=== PATIENT | male | born 1945 | race Caucasian/White ===

== ENCOUNTER 2016-11-10 13:49 | Inpatient (IN) | payer OTHER, SELFPAY ==
--- NOTE | ~2016-11-10 | HP ---
History And Physical [address] [place]. [address] NAME: JEAN LOPEZ : 43 STATUS : ADM IN PAT#: [id number] AGE: 70 ADM/REG DATE : 11/10/16 MR#: [id number] REPORT SERV DATE: 11/10/16 DICTATED BY: NAGA SOTELO DATE: 11/10/16 REPORT STATUS : Draft TRANSCRIBED BY: MODL DATE: 11/10/16 DATE OF ADMISSION: 11/10/2016 REASON FOR ADMISSION: Biopsy-proven pauci-immune GEN positive MPO. This is a direct admit. HISTORY OF PRESENT ILLNESS: This is a very pleasant 70-year-old male patient, who was recently evaluated by Dr. Evin Dugan in our office at the request of his primary care provider for an increased level of fatigue with known history of lupus. He was previously followed by Rheumatology in [place] and he had increasing fatigue and tiredness across of two months span. He was previously on Plaquenil and had been off the drug for about eight years. Baseline creatinine noted on 12/19/2015 to be at 1.1. The patient was subsequently evaluated on 10/28/2016 showed a creatinine at that time noted at 3.0 with a GFR of 22 mL/minute with blood and urine noted on examination of his urinalysis with +2 urinary protein and greater than 120 red blood cells per high-powered field. Subsequently, he was recommended for renal biopsy which he underwent. Renal biopsy elicited findings of pauci- immune crescentic GEN with positive MPO with most recent creatinine according to communication with his primary cementer at 4.2. Renal biopsy was on Tuesday of this week, 11/08/2016. Today at Dr. Dugan's instructions the patient is admitted via direct admission for plans for PermCath and plasma exchange for above diagnosis. He is currently sitting at bedside, awake and alert with family present in the room. Denies current chest pain. No nausea, vomiting, or diarrhea. PAST MEDICAL HISTORY: Positive for systemic lupus as above with previous trigger with Plaquenil with removal over eight years ago according to notations from our office at [facility]. History also positive for proteinuria, hematuria, acute kidney injury with creatinine noted to be on 12/19/2015 at 1.1, creatinine at 3.0 on 10/28/2016, most recent creatinine on date of biopsy on 11/08/2016 at 4.2 according to notation from [facility]. History also positive for iron deficiency anemia, hypothyroidism, and hypertension. REVIEW OF SYSTEMS: Completed. Please see HPI for pertinent details. SOCIAL HISTORY: No EtOH. No illicit drugs. Remote history of tobacco. 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 MEDICATIONS AND ALLERGIES: Are currently unavailable as recorded dictation is performed, so we are to collect them. Medications listed in packet from [facility] include Aleve 220 mg p.o. daily, ferrous sulfate one tablet p.o. b.i.d., levothyroxine 50 mcg daily, loratadine 10 mg daily, vitamin C 500 mg p.o. daily. History And Physical [address] [address] NAME: JEAN LOPEZ : 43 STATUS : ADM IN [facility]#: [id number] AGE: 70 ADM/REG DATE : 11/10/16 MR#: [id number] REPORT SERV DATE: 11/10/16 DICTATED BY: NAGA SOTELO DATE: 11/10/16 REPORT STATUS : Draft TRANSCRIBED BY: ARTHUR DATE: 11/10/16 PHYSICAL EXAMINATION: VITAL SIGNS: Blood pressure 156/74, temperature at 97.6, 98% on room air, heart rate 94 beats per minute and regular, respiratory rate is 16. GENERAL: He is awake, alert, and oriented x3 male patient, lying in bed during evaluation, in no acute distress with his family at bedside. HEENT: Normocephalic, atraumatic. Normal ocular movements. No scleral icterus, conjunctival pallor is appreciated. NECK: Supple without thyromegaly. No JVD or mass. CHEST: Shows positive S1, S2. No rubs or gallops. LUNGS: Clear to auscultation somewhat diminished throughout with normal expansion and effort bilaterally. GI: Shows positive bowel sounds in all four quadrants. No appreciable mass, tenderness. : Deferred. NEUROLOGIC: Appears to be grossly intact. Nonfocal. SKIN: Warm, dry, and intact to visualized surfaces. No rash, lesions, or ecchymosis. PSYCHIATRIC: He is of appropriate mood and affect. LABORATORY DATA: Most recent laboratories reflected above in HPI with no laboratories at this point collected at [facility]. IMPRESSION AND PLAN: This is a very pleasant 70-year-old male patient, recent medical history as listed above now admitted to [facility] via direct admit for planning an implementation for treatment for biopsy-proven pauci-immune crescentic GEN with positive MPO, placement of PermCath at our request today exit booth agent by [facility]. Plans for TPE daily x5 treatments. Solu-Medrol 1 g daily x3 then prednisone 60 mg daily, Rituxan 375 mg/m2 weekly x4 weeks as well as Bactrim DS Tuesday, Tuesday, and Tuesday. Plan of care has been discussed with the family as well as the patient at bedside this afternoon. He is aware of current medical plan and in agreement as explained this afternoon to him by myself as well as Dr. Naga Sotelo, and delineated to him previously by Dr. Evin Dugan. Follow the patient with I's and O's, home medications as they become available, accurate weight and height as well as laboratory collection this afternoon, and placement of PermCath from our friends at [facility]. We appreciate their assistance and care for this patient. Plans as outlined above. Modification of treatment plan based on clinical presentation, patient laboratory results, further consultation with renal attending. DICTATED BY: Konstantin Caba NP JR/ARTHUR Naga Sotelo M.D. / [id number] History And Physical [address] [address] NAME: JEAN LOPEZ : 43 STATUS : ADM IN PAT#: [id number] AGE: 70 ADM/REG DATE : 11/10/16 MR#: [id number] REPORT SERV DATE: 11/10/16 DICTATED BY: NAGA SOTELO DATE: 11/10/16 REPORT STATUS : Draft TRANSCRIBED BY: ARTHUR DATE: 11/10/16 CC: Kalyan Peters III, D.O.
--- NOTE | ~2016-11-10 | OP ---
Record Of Operation [facility] [place] [address] [place]. [address] NAME: JEAN LOPEZ : 43 STATUS : ADM IN [facility]#: [id number] AGE: 71 ADM/REG DATE : 11/10/16 MR#: [id number] REPORT SERV DATE: 11/11/16 DICTATED BY: DASHAWN YANG DATE: 11/11/16 REPORT STATUS : Draft TRANSCRIBED BY: MODL DATE: 11/11/16 DATE OF PROCEDURE: 11/11/2016 PREOPERATIVE DIAGNOSIS: Acute renal insufficiency. POSTOPERATIVE DIAGNOSIS: Acute renal insufficiency. SURGERY PERFORMED: Placement of right PermCath in the internal jugular vein. DESCRIPTION OF PROCEDURE: The patient was placed under IV sedation. Neck and chest prepped and draped in a sterile fashion. Using ultrasound guidance, right internal jugular vein was cannulated with a micropuncture needle, wire, and sheath. An 0.035 wire was then placed through the sheath. A tunnel created on the anterior chest wall with two incisions. The 23 cm HemoSplit catheter was pulled through the tunnel with the tunneling device. The stripping catheter placed over the 0.035 wire and then the PermCath placed through the stripping catheter, which was removed leaving the catheter in good position at the tip of the right atrium. The catheter was found to easily aspirate blood. It was flushed with heparinized saline, sewn to the chest wall with 2-0 Nurolon suture. The incision at the neck closed with 3-0 Monocryl. Dry dressings were applied. Estimated blood loss was negligible. The final fluoro films showing the catheter in good position and ready for dialysis. MG/ARTHUR Dashawn Yang M.D. / [id number] CC: Kalyan Peters III, D.O.
--- NOTE | ~2016-11-10 | DS ---
Discharge Summary [facility] [address] [place]. [address] NAME: JEAN LOPEZ : 43 STATUS : DIS IN PAT#: [id number] AGE: 71 ADM/REG DATE : 11/10/16 MR#: [id number] REPORT SERV DATE: 11/27/16 DICTATED BY: NAGA SOTELO DATE: 11/26/16 REPORT STATUS : Draft TRANSCRIBED BY: ARTHUR DATE: 11/26/16 Data Collection from hospitalization DISCHARGE DIAGNOSES: 1. Pauci-immune GEN. 2. History of systemic lupus erythematosus. 3. Anemia. 4. Hypertension. 5. Hypothyroidism. CONSULTATIONS: Dashawn Hwang M.D. PROCEDURES PERFORMED: Placement of right PermCath in the internal jugular vein on 11/11/2016. MEDICATIONS: Tylenol 500 mg three times a day as needed, Tums one tablet as needed, levothyroxine 50 mcg daily, Claritin 10 mg daily, Prilosec 20 mg daily, MiraLAX powder one packet daily, Deltasone 60 mg daily, and Bactrim DS one tablet three times a week as instructed. CONDITION AT DISCHARGE: Stable. DISPOSITION: The patient was discharged home on a renal diet with activities as instructed. He would follow up with Dr. Evin Dugan on 11/18/2016. HOSPITAL COURSE: This is a 71-year-old man who has biopsy-proven pauci-immune GEN positive MPO. He had seen his primary care provider with an increased level of fatigue. He has a known history of lupus. He has been followed by Rheumatology in [place] and had an increasing fatigue and tiredness over the last two months. He had previously been on Plaquenil and had been off this drug for about eight years. He had undergone a renal biopsy, which revealed findings of pauci-immune crescentic GEN with positive MPO with most recent creatinine according to communication with his primary viscose department worker of 4.2. Renal biopsy was on 11/08/2016. It was felt that the patient would need a PermCath and plasma exchange. He was admitted to the hospital at this time for further evaluation and treatment. Upon admission, he was going to receive Solu-Medrol, prednisone, Rituxan as well as Bactrim DS. The patient was seen by Dr. Dashawn Hwang. The patient does have acute renal insufficiency. It was felt that he would need to undergo placement of right PermCath in the internal jugular vein. He agreed to proceed and this procedure was performed by Dr. Dashawn Hwang. He tolerated this well, and there were no complications. On 11/12/2016, creatinine level was 4.75. White count was 14.7. He was alert and cooperative. He had good pain control. He had no nausea or vomiting. He had no edema. His treatment for biopsy-proven pauci-immune continued. On 11/15/2016, he had no shortness of breath. He had no complaints. He did have some generalized fatigue. Creatinine was 4.03. TPE was performed. The following day, TPE was continued. He continued to do well. Discharge planning was performed. On 11/17/2016, he Discharge Summary [address] [address] NAME: JEAN LOPEZ : 43 STATUS : DIS IN PAT#: [id number] AGE: 71 ADM/REG DATE : 11/10/16 MR#: [id number] REPORT SERV DATE: 11/27/16 DICTATED BY: NAGA SOTELO DATE: 11/26/16 REPORT STATUS : Draft TRANSCRIBED BY: MODL DATE: 11/26/16 had no new complaints. He was alert and cooperative. Creatinine was 2.96. Discharge instructions were given. A dose of Kayexalate was given. Due to his improved and stable condition, he was discharged home with the above-stated instructions. Information collected by: Rose Cardona I submit the above information as my discharge summary. TG/MODL Naga Sotelo M.D. / [id number] CC: Kalyan Peters III, D.O. Michael Greer, M.D.
[2016-11-10] MEDS ORDERED: MIRALAX POWDER1 PKT PO (16:43)
[2016-11-10] MEDS ORDERED: CLARIT10 PO (16:43)
[2016-11-10] MEDS ORDERED: LEVOTHYROXIN50 MCG PO (16:43)
[2016-11-10] MEDS ORDERED: ACET500CAP PO (16:43)
[2016-11-10] MEDS ORDERED: TUMSROLL PO (16:44)
[2016-11-10 18:13] LABS: BASOPHILS 0.2 %; BASOPHILS ABSOLUTE 0.01 10/3/uL (0.0-0.16); EOSINOPHILS 2.5 %; EOSINOPHILS ABSOLUTE 0.12 10/3/uL (0.0-0.53); HEMATOCRIT 28.7 % (40.0-51.0); HEMOGLOBIN 9.3 g/dL (13.6-17.8); IMMATURE GRANULOCYTES 0.2 %; IMMATURE GRANULOCYTES ABSOLUTE 0.01 10/3/uL (0.0-0.11); LYMPHOCYTES 21.1 %; LYMPHOCYTES ABSOLUTE 1.01 10/3/uL (0.67-4.30); MEAN CORPUS HGB CONC 32.4 g/dL (32.0-36.0); MEAN CORPUSCULAR HEMOGLOB 28.2 pg (26.0-34.0); MEAN PLATELET VOLUME 10.2 fL (9.2-13.0); MONOCYTES 6.1 %; MONOCYTES ABSOLUTE 0.29 10/3/uL (0.21-1.20); NEUTROPHILS 69.9 %; NEUTROPHILS ABSOLUTE 3.34 10/3/uL (2.02-8.40); PLATELET COUNT 204 10/3/uL (150-400); RBC DISTRIBUTION WIDTH 14.2 % (12.0-16.0); WHITE BLOOD CELLS 4.8 10/3/uL (4.5-10.5)
[2016-11-10 18:20] LABS: MANUAL DIFF NO %
[2016-11-10 18:29] LABS: A/G RATIO 0.9 (0.7-1.9); ALBUMIN 3.4 G/DL (3.5-5.0); ALKALINE PHOSPHATASE 96 U/L (45-117); BUN (BLOOD UREA NITROGEN) 57 MG/DL (6-23); CALCIUM, SERUM 8.7 MG/DL (8.5-10.4); CHLORIDE, SERUM 108 MMOL/L (96-112); CO2 (CARBON DIOXIDE) 27 MMOL/L (24-34); GFR AFRICAN AMERICAN 14 ML/MIN (>=60); GFR NON AFRICAN AMERICAN 12 ML/MIN (>=60); GLOBULIN 3.8 G/DL (2.5-4.1); GLUCOSE, SERUM 79 MG/DL (60-99); PHOSPHORUS, SERUM 4.4 MG/DL (2.5-4.5); POTASSIUM, SERUM 5.3 MMOL/L (3.5-5.3); SGOT(AST) 19 U/L (5-40); SGPT(ALT) 28 U/L (5-65); SODIUM, SERUM 140 MMOL/L (135-148); TOTAL BILIRUBIN 0.8 MG/DL (0-1.2); TOTAL PROTEIN 7.2 G/DL (6.0-8.5)
[2016-11-11 06:39] LABS: BASOPHILS 0 %; EOSINOPHILS 0.2 %; EOSINOPHILS ABSOLUTE 0.01 10/3/uL (0.0-0.53); HEMATOCRIT 30.7 % (40.0-51.0); HEMOGLOBIN 10.2 g/dL (13.6-17.8); IMMATURE GRANULOCYTES 0.2 %; IMMATURE GRANULOCYTES ABSOLUTE 0.01 10/3/uL (0.0-0.11); LYMPHOCYTES 18.7 %; LYMPHOCYTES ABSOLUTE 0.78 10/3/uL (0.67-4.30); MEAN CORPUS HGB CONC 33.2 g/dL (32.0-36.0); MEAN CORPUSCULAR HEMOGLOB 28.7 pg (26.0-34.0); MEAN CORPUSCULAR VOLUME 86.5 fL (80-100); MEAN PLATELET VOLUME 9.9 fL (9.2-13.0); MONOCYTES 0.7 %; MONOCYTES ABSOLUTE 0.03 10/3/uL (0.21-1.20); NEUTROPHILS 80.2 %; NEUTROPHILS ABSOLUTE 3.35 10/3/uL (2.02-8.40); PLATELET COUNT 212 10/3/uL (150-400); RBC DISTRIBUTION WIDTH 13.8 % (12.0-16.0); RED CELL COUNT 3.55 10/6/uL (4.7-6.1); WHITE BLOOD CELLS 4.2 10/3/uL (4.5-10.5)
[2016-11-11 06:40] LABS: MANUAL DIFF NO %
[2016-11-11 06:55] LABS: ALBUMIN 3.2 G/DL (3.5-5.0); CALCIUM, SERUM 8.9 MG/DL (8.5-10.4); CHLORIDE, SERUM 107 MMOL/L (96-112); CO2 (CARBON DIOXIDE) 23 MMOL/L (24-34); CREATININE 4.78 MG/DL (0.70-1.30); GFR AFRICAN AMERICAN 13 ML/MIN (>=60); GFR NON AFRICAN AMERICAN 11 ML/MIN (>=60); PHOSPHORUS, SERUM 3.9 MG/DL (2.5-4.5); POTASSIUM, SERUM 5.2 MMOL/L (3.5-5.3); SODIUM, SERUM 135 MMOL/L (135-148)
[2016-11-11 06:56] LABS: BUN (BLOOD UREA NITROGEN) 63 MG/DL (6-23); GLUCOSE, SERUM 149 MG/DL (60-99)
[2016-11-11 19:40] LABS: ASCORBIC ACID (UR NOT ORDER) NEG (NEG); BILIRUBIN, URINE NEGATIVE (NEG); KETONE, URINE NEGATIVE (NEG); LEUKOCYTE ESTERASE(NOT OR NEG (NEG); WBC (NOT ORDERED) (RFLEX) 3 (0-5)
[2016-11-12 06:53] LABS: BASOPHILS 0 %; EOSINOPHILS 0 %; HEMATOCRIT 28.9 % (40.0-51.0); HEMOGLOBIN 9.8 g/dL (13.6-17.8); IMMATURE GRANULOCYTES 0.3 %; IMMATURE GRANULOCYTES ABSOLUTE 0.04 10/3/uL (0.0-0.11); LYMPHOCYTES 4.9 %; LYMPHOCYTES ABSOLUTE 0.72 10/3/uL (0.67-4.30); MEAN CORPUS HGB CONC 33.9 g/dL (32.0-36.0); MEAN CORPUSCULAR HEMOGLOB 29.2 pg (26.0-34.0); MEAN PLATELET VOLUME 10.4 fL (9.2-13.0); MONOCYTES 1.7 %; MONOCYTES ABSOLUTE 0.25 10/3/uL (0.21-1.20); NEUTROPHILS 93.1 %; NEUTROPHILS ABSOLUTE 13.66 10/3/uL (2.02-8.40); PLATELET COUNT 205 10/3/uL (150-400); RBC DISTRIBUTION WIDTH 14.5 % (12.0-16.0); RED CELL COUNT 3.36 10/6/uL (4.7-6.1)
[2016-11-12 06:55] LABS: MANUAL DIFF NO %; WHITE BLOOD CELLS 14.7 10/3/uL (4.5-10.5)
[2016-11-12 07:05] LABS: CALCIUM, SERUM 8.8 MG/DL (8.5-10.4); CHLORIDE, SERUM 111 MMOL/L (96-112); CO2 (CARBON DIOXIDE) 20 MMOL/L (24-34); CREATININE 4.75 MG/DL (0.70-1.30); GFR AFRICAN AMERICAN 13 ML/MIN (>=60); GFR NON AFRICAN AMERICAN 11 ML/MIN (>=60); GLUCOSE, SERUM 140 MG/DL (60-99); PHOSPHORUS, SERUM 4.8 MG/DL (2.5-4.5); POTASSIUM, SERUM 5.8 MMOL/L (3.5-5.3); SODIUM, SERUM 141 MMOL/L (135-148)
[2016-11-12 07:06] LABS: ALBUMIN 4.1 G/DL (3.5-5.0); BUN (BLOOD UREA NITROGEN) 68 MG/DL (6-23)
[2016-11-13 06:33] LABS: BASOPHILS 0 %; EOSINOPHILS 0 %; HEMATOCRIT 25.5 % (40.0-51.0); HEMOGLOBIN 8.7 g/dL (13.6-17.8); IMMATURE GRANULOCYTES 0.3 %; IMMATURE GRANULOCYTES ABSOLUTE 0.04 10/3/uL (0.0-0.11); LYMPHOCYTES 5.2 %; LYMPHOCYTES ABSOLUTE 0.72 10/3/uL (0.67-4.30); MANUAL DIFF NO %; MEAN CORPUS HGB CONC 34.1 g/dL (32.0-36.0); MEAN CORPUSCULAR HEMOGLOB 28.8 pg (26.0-34.0); MEAN CORPUSCULAR VOLUME 84.4 fL (80-100); MEAN PLATELET VOLUME 10.7 fL (9.2-13.0); MONOCYTES 1.7 %; MONOCYTES ABSOLUTE 0.24 10/3/uL (0.21-1.20); NEUTROPHILS 92.8 %; NEUTROPHILS ABSOLUTE 12.97 10/3/uL (2.02-8.40); PLATELET COUNT 179 10/3/uL (150-400); RBC DISTRIBUTION WIDTH 14.7 % (12.0-16.0); RED CELL COUNT 3.02 10/6/uL (4.7-6.1)
[2016-11-13 06:54] LABS: ALBUMIN 4.3 G/DL (3.5-5.0); BUN (BLOOD UREA NITROGEN) 74 MG/DL (6-23); CALCIUM, SERUM 8.5 MG/DL (8.5-10.4); CHLORIDE, SERUM 114 MMOL/L (96-112); CO2 (CARBON DIOXIDE) 20 MMOL/L (24-34); CREATININE 4.59 MG/DL (0.70-1.30); GFR AFRICAN AMERICAN 14 ML/MIN (>=60); GFR NON AFRICAN AMERICAN 12 ML/MIN (>=60); GLUCOSE, SERUM 129 MG/DL (60-99); PHOSPHORUS, SERUM 5.2 MG/DL (2.5-4.5); POTASSIUM, SERUM 5.3 MMOL/L (3.5-5.3); SODIUM, SERUM 144 MMOL/L (135-148)
[2016-11-14 05:37] LABS: BASOPHILS 0 %; EOSINOPHILS 0 %; HEMATOCRIT 26.2 % (40.0-51.0); HEMOGLOBIN 8.9 g/dL (13.6-17.8); IMMATURE GRANULOCYTES 0.4 %; IMMATURE GRANULOCYTES ABSOLUTE 0.06 10/3/uL (0.0-0.11); LYMPHOCYTES 6.3 %; LYMPHOCYTES ABSOLUTE 0.89 10/3/uL (0.67-4.30); MEAN CORPUSCULAR HEMOGLOB 28.7 pg (26.0-34.0); MEAN CORPUSCULAR VOLUME 84.5 fL (80-100); MEAN PLATELET VOLUME 10.8 fL (9.2-13.0); MONOCYTES 5.2 %; MONOCYTES ABSOLUTE 0.74 10/3/uL (0.21-1.20); NEUTROPHILS 88.1 %; NEUTROPHILS ABSOLUTE 12.46 10/3/uL (2.02-8.40); PLATELET COUNT 184 10/3/uL (150-400); RBC DISTRIBUTION WIDTH 14.9 % (12.0-16.0); WHITE BLOOD CELLS 14.2 10/3/uL (4.5-10.5)
[2016-11-14 05:41] LABS: MANUAL DIFF NO %
[2016-11-14 05:53] LABS: ALBUMIN 4.5 G/DL (3.5-5.0); BUN (BLOOD UREA NITROGEN) 75 MG/DL (6-23); CALCIUM, SERUM 8.8 MG/DL (8.5-10.4); CHLORIDE, SERUM 115 MMOL/L (96-112); CO2 (CARBON DIOXIDE) 20 MMOL/L (24-34); GLUCOSE, SERUM 104 MG/DL (60-99); POTASSIUM, SERUM 5.2 MMOL/L (3.5-5.3); SODIUM, SERUM 142 MMOL/L (135-148)
[2016-11-14 06:00] LABS: CREATININE 4.03 MG/DL (0.70-1.30); GFR AFRICAN AMERICAN 16 ML/MIN (>=60); GFR NON AFRICAN AMERICAN 14 ML/MIN (>=60); PHOSPHORUS, SERUM 4.1 MG/DL (2.5-4.5)
[2016-11-15 05:09] LABS: BASOPHILS 0 %; EOSINOPHILS 0 %; HEMATOCRIT 25.3 % (40.0-51.0); HEMOGLOBIN 8.6 g/dL (13.6-17.8); IMMATURE GRANULOCYTES 0.3 %; IMMATURE GRANULOCYTES ABSOLUTE 0.03 10/3/uL (0.0-0.11); LYMPHOCYTES 10.7 %; LYMPHOCYTES ABSOLUTE 0.99 10/3/uL (0.67-4.30); MEAN CORPUSCULAR HEMOGLOB 28.6 pg (26.0-34.0); MEAN CORPUSCULAR VOLUME 84.1 fL (80-100); MEAN PLATELET VOLUME 10.2 fL (9.2-13.0); MONOCYTES ABSOLUTE 0.56 10/3/uL (0.21-1.20); NEUTROPHILS ABSOLUTE 7.68 10/3/uL (2.02-8.40); PLATELET COUNT 172 10/3/uL (150-400); RBC DISTRIBUTION WIDTH 14.7 % (12.0-16.0); RED CELL COUNT 3.01 10/6/uL (4.7-6.1); WHITE BLOOD CELLS 9.3 10/3/uL (4.5-10.5)
[2016-11-15 05:16] LABS: MANUAL DIFF NO %
[2016-11-15 08:30] LABS: BUN (BLOOD UREA NITROGEN) 73 MG/DL (6-23); CALCIUM, SERUM 8.7 MG/DL (8.5-10.4); CHLORIDE, SERUM 112 MMOL/L (96-112); CO2 (CARBON DIOXIDE) 21 MMOL/L (24-34); CREATININE 3.37 MG/DL (0.70-1.30); GFR AFRICAN AMERICAN 20 ML/MIN (>=60); GFR NON AFRICAN AMERICAN 17 ML/MIN (>=60); GLUCOSE, SERUM 88 MG/DL (60-99); PHOSPHORUS, SERUM 3.5 MG/DL (2.5-4.5); POTASSIUM, SERUM 4.9 MMOL/L (3.5-5.3); SODIUM, SERUM 140 MMOL/L (135-148)
[2016-11-16 07:49] LABS: BASOPHILS 0 %; EOSINOPHILS ABSOLUTE 0.08 10/3/uL (0.0-0.53); HEMATOCRIT 26.5 % (40.0-51.0); HEMOGLOBIN 9.1 g/dL (13.6-17.8); IMMATURE GRANULOCYTES 0.8 %; IMMATURE GRANULOCYTES ABSOLUTE 0.07 10/3/uL (0.0-0.11); LYMPHOCYTES 9.3 %; LYMPHOCYTES ABSOLUTE 0.78 10/3/uL (0.67-4.30); MEAN CORPUS HGB CONC 34.3 g/dL (32.0-36.0); MEAN CORPUSCULAR VOLUME 84.4 fL (80-100); MEAN PLATELET VOLUME 10.4 fL (9.2-13.0); MONOCYTES 10.1 %; MONOCYTES ABSOLUTE 0.85 10/3/uL (0.21-1.20); NEUTROPHILS 78.8 %; NEUTROPHILS ABSOLUTE 6.61 10/3/uL (2.02-8.40); PLATELET COUNT 177 10/3/uL (150-400); RBC DISTRIBUTION WIDTH 15.1 % (12.0-16.0); RED CELL COUNT 3.14 10/6/uL (4.7-6.1); WHITE BLOOD CELLS 8.4 10/3/uL (4.5-10.5)
[2016-11-16 07:50] LABS: MANUAL DIFF NO %
[2016-11-16 08:03] LABS: ALBUMIN 4.4 G/DL (3.5-5.0); CHLORIDE, SERUM 116 MMOL/L (96-112); CO2 (CARBON DIOXIDE) 19 MMOL/L (24-34); GFR AFRICAN AMERICAN 22 ML/MIN (>=60); GFR NON AFRICAN AMERICAN 19 ML/MIN (>=60); GLUCOSE, SERUM 78 MG/DL (60-99); PHOSPHORUS, SERUM 3.8 MG/DL (2.5-4.5); SODIUM, SERUM 144 MMOL/L (135-148)
[2016-11-16 08:04] LABS: BUN (BLOOD UREA NITROGEN) 68 MG/DL (6-23)
[2016-11-16] MEDS ORDERED: BACDS PO (16:24)
[2016-11-16] MEDS ORDERED: TUMSROLL PO (16:25)
[2016-11-16] MEDS ORDERED: P20 PO (16:25)
[2016-11-17 05:55] LABS: BASOPHILS 0 %; EOSINOPHILS 0.5 %; EOSINOPHILS ABSOLUTE 0.04 10/3/uL (0.0-0.53); HEMATOCRIT 25.6 % (40.0-51.0); HEMOGLOBIN 8.7 g/dL (13.6-17.8); IMMATURE GRANULOCYTES 1.1 %; LYMPHOCYTES 8.1 %; LYMPHOCYTES ABSOLUTE 0.71 10/3/uL (0.67-4.30); MANUAL DIFF NO %; MEAN CORPUSCULAR HEMOGLOB 28.5 pg (26.0-34.0); MEAN CORPUSCULAR VOLUME 83.9 fL (80-100); MEAN PLATELET VOLUME 11.4 fL (9.2-13.0); MONOCYTES 6.9 %; NEUTROPHILS 83.4 %; NEUTROPHILS ABSOLUTE 7.27 10/3/uL (2.02-8.40); PLATELET COUNT 137 10/3/uL (150-400); RBC DISTRIBUTION WIDTH 15.1 % (12.0-16.0); RED CELL COUNT 3.05 10/6/uL (4.7-6.1); WHITE BLOOD CELLS 8.7 10/3/uL (4.5-10.5)
[2016-11-17 06:10] LABS: ALBUMIN 4.3 G/DL (3.5-5.0); CALCIUM, SERUM 8.6 MG/DL (8.5-10.4); CHLORIDE, SERUM 115 MMOL/L (96-112); CO2 (CARBON DIOXIDE) 17 MMOL/L (24-34); CREATININE 2.96 MG/DL (0.70-1.30); GFR AFRICAN AMERICAN 23 ML/MIN (>=60); GFR NON AFRICAN AMERICAN 20 ML/MIN (>=60); PHOSPHORUS, SERUM 3.9 MG/DL (2.5-4.5); POTASSIUM, SERUM 5.9 MMOL/L (3.5-5.3); SODIUM, SERUM 139 MMOL/L (135-148)
[2016-11-17 06:11] LABS: BUN (BLOOD UREA NITROGEN) 64 MG/DL (6-23); GLUCOSE, SERUM 97 MG/DL (60-99)
[2016-11-17] MEDS ORDERED: PRILO PO (16:19)
[2016-11-17 22:32] LABS: ANCA PATTERN CHG YES; MYELOPEROXIDASE ANTIBODY >8.0 AI (<1.0); PROTEINASE 3 ANTIBODY <0.2 AI (<1.0)
== END 2016-11-17 17:43 | disposition home or self-care (01) | DRG 700 ==
LOC: 2SO 13:49
PROVIDERS: Internal Medicine Nephrology; Nurse Practitioner; Registered Nurse; Surgery Vascular Surgery
PROC: 5A1D60Z (ICD-10-PCS; 2016-11-11)
PROC: B543ZZA Ultrasonography of Right Jugular Veins, Guidance (ICD-10-PCS; 2016-11-11)
PROC: 6A551Z3 Pheresis of Plasma, Multiple (ICD-10-PCS; 2016-11-11)
PROC: 05HM33Z Insertion of Infusion Device into Right Internal Jugular Vein, Percutaneous Approach (ICD-10-PCS; principal; 2016-11-11 09:15)
DX: N00.7 Acute nephritic syndrome with diffuse crescentic glomerulonephritis (principal); N17.9 Acute kidney failure, unspecified; N01.7 Rapidly progressive nephritic syndrome with diffuse crescentic glomerulonephritis; M32.9 Systemic lupus erythematosus, unspecified; D50.9 Iron deficiency anemia, unspecified; E03.9 Hypothyroidism, unspecified; I12.9 Hypertensive chronic kidney disease with stage 1 through stage 4 chronic kidney disease, or unspecified chronic kidney disease
CPT/HCPCS: 36514; 36558; 74000; 77001; 80053; 80069; 81001; 82330; 82962; 83516; 83516-59; 83735; 85025; 86255; A9270-GY; C1750; G0257; J0610; J0690; J1200; J2930; J3010; J3475; J3480; J9310; P9045; Q9967